=== PATIENT | female | born 1975 | race Caucasian/White ===

== ENCOUNTER 2018-11-29 11:54 | Emergency (ER) | payer OTHER ==
[~2018-11-29] VITALS: Ht 170.2 cm; Wt 117.5 kg
[2018-11-29 12:05] VITALS: Ht 170.2 cm; Wt 117.5 kg
[2018-11-29 16:03] VITALS: BP 140/89
== END 2018-11-29 16:03 | disposition home or self-care (01) ==
LOC: ED 11:54
DX: J45.901 Unspecified asthma with (acute) exacerbation (principal)
CPT/HCPCS: J2930; J7030; J7613; J7644; Q0092